=== PATIENT | female | born 1975 | race Caucasian/White ===

== ENCOUNTER 2017-02-02 22:13 | Emergency (ER) | payer SELFPAY ==
[~2017-02-02] VITALS: Ht 165.1 cm; Wt 48.0 kg
[~2017-02-02 22:13] MED LIST: BUPR-197; PERC10TA27; SYNT25TA
[2017-02-02 22:29] VITALS: BP 156/93; PULSE 91; RESP 16; TEMP 98.6; O2SAT 97
[2017-02-03 00:43] VITALS: BP 137/78; PULSE 75; RESP 18; TEMP 98.2; O2SAT 100
--- NOTE | 2017-02-03 01:44 | PD ---
HPI Chief Complaint: Dizziness Time Seen by Provider: 01:40 Travel History International Travel<30 days: No Contact w/Intl Traveler<30days: No Traveled to known affect area: No History of Present Illness HPI 41 year-old female presents to the emergency for for several days of not feeling well. Colleague has had similar symptoms but is well now. Patient has noted multiple areas of skin lesions that developed as well as in the last 24 hours. Patient has had MRSA infection of the past. Last period just finished yesterday and was normal for her. Patient denies . Pain is 6-7/10 in intensity. Patient is unable to identify exacerbating or alleviating factors. Patient has history of rheumatoid arthritis. Patient has had cough congestion myalgias arthralgias no report of sinus pressure drainage sore throat neck pain neck stiffness chest pain abdominal pain flank pain vomiting or diarrhea. PFSH Past Medical History Narrative Medical depression hypothyroidism substance use MRSA infection; nursing notes reviewed Depression: Yes Cardiovascular Problems: No Genitourinary: No Immune Disorder: No Musculoskeletal: No Neurologic: No Reproductive: No Respiratory: No Thyroid Disease: Yes (THYROID RADIATED ) ?: Not LMP: CURRENT Past Surgical History Endocrine Surgery: Yes (HYPOTHYROID) Social History Alcohol Use: Yes (COUPLE OF BEERS DAILY) Tobacco Use: No Substance Use: Yes (SNORTED METH TODAY) Allergies-Medications (Allergen,Severity, Reaction): Coded Allergies: No Known Allergies (Verified Adverse Reaction, Unknown, 02/02/17) Reported Meds & Prescriptions Reported Meds & Active Scripts Active No Active Prescriptions or Reported Medications Review of Systems Except as stated in HPI: all other systems reviewed are Neg Physical Exam Narrative GENERAL: Well-developed well-nourished female in no acute distress no respiratory distress SKIN: Warm and dry. Multiple vesicles and pustules with partial healing primarily left upper arm left index finger left wrist right middle finger right wrist 2 areas in the mons pubis HEAD: Normocephalic. EYES: No scleral icterus. No injection or drainage. NECK: Supple, trachea midline. No JVD or lymphadenopathy. CARDIOVASCULAR: Regular rate and rhythm without murmurs, gallops, or rubs. RESPIRATORY: Breath sounds equal bilaterally. No accessory muscle use. GASTROINTESTINAL: Abdomen soft, non-tender, nondistended. MUSCULOSKELETAL: No cyanosis, or edema. BACK: Nontender without obvious deformity. No CVA tenderness. Data Data Last Documented VS Vital Signs Date Time Temp Pulse Resp B/P (MAP) Pulse Ox O2 Delivery O2 Flow Rate FiO2 02/03/17 05:24 70 18 129/65 (86) 98 Room Air 02/03/17 00:43 98.2 Orders Orders Wound Culture And Gram Stain (02/03/17 01:40) Influenzae A/B Antigen (02/03/17 01:40) Urinalysis - C+S If Indicated (02/03/17 01:40) Ed Urine Pregnancytest Poc (02/03/17 01:40) Chest, Single Ap (02/03/17 ) Ibuprofen (Motrin) (02/03/17 01:45) Clindamycin (Cleocin) (02/03/17 05:30) Labs Laboratory Tests Test 02/03/17 04:20 Urine Color LIGHT-YELLOW Urine Turbidity CLEAR Urine pH 5.5 Urine Specific [place] 1.007 Urine Protein NEG mg/dL Urine Glucose (UA) NEG mg/dL Urine Ketones NEG mg/dL Urine Occult Blood NEG Urine Nitrite NEG Urine Bilirubin NEG Urine Urobilinogen LESS THAN 2.0 MG/DL Urine Leukocyte Esterase MOD Urine RBC 1 /hpf Urine WBC 2 /hpf Urine Squamous Epithelial Cells 1 /hpf Urine Bacteria RARE /hpf Urine Mucus FEW /lpf Microscopic Urinalysis Comment CULT NOT INDICATED MDM Medical Decision Making Medical Screen Exam Complete: Yes Emergency Medical Condition: Yes Medical Record Reviewed: Yes Differential Diagnosis Cellulitis folliculitis MRSA infection UTI pneumonia influenza; no findings for necrotizing fasciitis Narrative Course Specimens collected and sent for resulting chest x-ray ordered ibuprofen administered for pain Diagnosis Primary Impression: Folliculitis barbae traumatica Additional Impression: Cellulitis of finger, left Referrals: Primary Care Physician 2 days Patient Instructions: General Instructions Additional Instructions: Keep wound site clean and dry Complete course of antibiotic as prescribed Take acetaminophen/Tylenol as needed for fever 100.4F or greater Take ibuprofen as tolerated for pain associated with inflammation or fever fever 100.4F or greater per package directions Return to the emergency department for any concerns or change in condition Follow-up with her primary care provider or clinic Med/Other Pt SpecificInfo: Prescription(s) given Scripts Sulfamethoxazole-Trimethoprim (Bactrim DS) 800-160 Mg Tab 1 TAB PO BID for Infection, #20 TAB 0 Refills Prov: Quita Ruiz MD 02/03/17 Clindamycin (Clindamycin) 150 Mg Cap 300 MG PO Q6H for Infection for 7 Days, #56 CAP 0 Refills Prov: Quita Ruiz MD 02/03/17 Disposition: 01 DISCHARGE HOME Condition: Stable Quita Ruiz MD Feb 03, 2017 01:44
[2017-02-03] MEDS ORDERED: IBUPROFEN 400 MG TAB PO ONE (01:45)
--- NOTE | 2017-02-03 02:10 | RADRPT ---
EXAM DATE/TIME: 02/03/2017 01:50 [facility] COMPARISON: No previous studies available for comparison. INDICATIONS : Headache and flu symptoms x 1 week. MEDICAL HISTORY : Hypotyroid, MRSA SURGICAL HISTORY : None. ENCOUNTER: Initial ACUITY: 1 week PAIN SCORE: 6/10 LOCATION: Bilateral chest FINDINGS: Single AP view of the chest. The lungs are clear. Cardiomediastinal silhouette within normal limits. No evidence of pleural effusion or pneumothorax. CONCLUSION: No acute cardiopulmonary disease identified. Jose Albert MD on February 03, 2017 at 2:08 Board Certified Radiologist. This report was verified electronically.
[2017-02-03 04:37] LABS: BACTERIA, URINE RARE /hpf; BLOOD, URINE NEG (NEG); GLUCOSE,URINE NEG (NEG); KETONE, URINE NEG (NEG); MUCUS URINE FEW /lpf (OCC); NITRITE,URINE NEG (NEG); PH, URINE 5.5 (5.0-8.5); SQUAMOUS EPITHELIAL CELL URINE 1 /hpf (0-5); URINE COLOR LIGHT-YELLOW (YELLW/STRAW)
[2017-02-03 04:38] LABS: COMMENT (UR) CULT NOT INDICATED; CULTURE IF INDICATED CULT NOT INDICATED
[2017-02-03 05:24] VITALS: BP 129/65; PULSE 70; RESP 18; O2SAT 98
[2017-02-03] MEDS ORDERED: BACT800T5 PO (05:28)
[2017-02-03] MEDS ORDERED: CLIN150C14 PO (05:28)
[2017-02-03] MEDS ORDERED: CLINDAMYCIN 150 MG CAP PO ONE (05:30)
[2017-02-03] MEDS ORDERED: SULFAMETHOXAZOLE-TRIMETHOPRIM DS 800-160 MG TAB PO ONE (05:30)
== END 2017-02-03 05:58 | disposition home or self-care (01) ==
LOC: NEPC 22:13
DX: L73.8 Other specified follicular disorders (principal); L03.012 Cellulitis of left finger; B95.62 Methicillin resistant Staphylococcus aureus infection as the cause of diseases classified elsewhere; M06.9 Rheumatoid arthritis, unspecified; F32.9 Major depressive disorder, single episode, unspecified; E03.9 Hypothyroidism, unspecified; F15.90 Other stimulant use, unspecified, uncomplicated; Z86.14 Personal history of Methicillin resistant Staphylococcus aureus infection
CPT/HCPCS: 71010; 81001; 84703; 86403; 87070; 87186; 87804; 99284

== ENCOUNTER 2017-03-03 18:17 | Emergency (ER) | payer SELFPAY ==
[~2017-03-03] VITALS: Ht 165.1 cm; Wt 50.0 kg
[~2017-03-03 18:17] MED LIST changes: +BACT800T5 PO; -BUPR-197; +CLIN150C14 PO; -PERC10TA27; -SYNT25TA
[2017-03-03 18:19] VITALS: BP 146/82; PULSE 87; RESP 16; TEMP 97.9; O2SAT 97
[2017-03-03] MEDS ORDERED: SODIUM CHLOR 0.9% 1000 ML INJ 1,000 ML IV ONE (19:33)
--- NOTE | 2017-03-03 19:38 | PD ---
HPI Chief Complaint: Suicide Ideation/Attempt Time Seen by Provider: 17:25 Travel History International Travel<30 days: No Contact w/Intl Traveler<30days: No Traveled to known affect area: No History of Present Illness HPI This patient was examined in the presence of a female nurse at all times. 41- year-old female presents voluntarily requesting psychiatric evaluation. She reports that she has a history of bipolar disorder, ran out of her psychiatric medications 3 months ago and is amenable to follow-up with psychiatry. She reports that she was kicked out of her home 6 weeks ago and has been homeless since then. As a result she has been using drugs more frequently-specifically she occasionally uses alcohol, marijuana, intravenous methamphetamines. She reports that she's not been eating or drinking very much and today she had a syncopal event and hit the right side of her head against the ground. This occurred when she was walking in she felt lightheaded and fell. She endorses depression, feelings of hopelessness, occasional suicidal thoughts. She reports that today she attempted to walk on the traffic to kill herself but she stopped herself at the last minute. She denies homicidal ideation, hallucinations. She denies chest pain, shortness of breath, palpitations, nausea or vomiting, abdominal pain. She has no other complaints at this time. [facility] Past Medical History Depression: Yes Cardiovascular Problems: No Genitourinary: No Immune Disorder: No Musculoskeletal: No Neurologic: No Reproductive: No Respiratory: No Thyroid Disease: Yes (THYROID RADIATED ) ?: Not LMP: 02/09/17 Past Surgical History Endocrine Surgery: Yes (HYPOTHYROID) Social History Alcohol Use: Yes (COUPLE OF BEERS DAILY) Tobacco Use: No Substance Use: Yes (SNORTED METH TODAY) Allergies-Medications (Allergen,Severity, Reaction): Coded Allergies: No Known Allergies (Verified Adverse Reaction, Unknown, 03/03/17) Reported Meds & Prescriptions Reported Meds & Active Scripts Active Reported Latuda (Lurasidone) 40 Mg Tab 40 Mg PO DAILY Synthroid (Levothyroxine Sodium) 50 Mcg Tab 50 Mcg PO DAILY Zoloft (Sertraline HCl) 50 Mg Tab 50 Mg PO DAILY Review of Systems Except as stated in HPI: all other systems reviewed are Neg Physical Exam Narrative Examined in the presence of a female nurse GENERAL: Disheveled appearing female who is in no acute distress. SKIN: Warm and dry. Multiple excoriated skin lesions on the extremities, face and torso likely secondary to skin picking. HEAD: Atraumatic. Normocephalic. EYES: Pupils equal and round. No scleral icterus. No injection or drainage. ENT: No nasal bleeding or discharge. Mucous membranes pink and moist. NECK: Trachea midline. No JVD. CARDIOVASCULAR: Regular rate and rhythm. No murmur appreciated. RESPIRATORY: No accessory muscle use. Clear to auscultation. Breath sounds equal bilaterally. GASTROINTESTINAL: Abdomen soft, non-tender, nondistended. Hepatic and splenic margins not palpable. MUSCULOSKELETAL: No obvious deformities. No clubbing. No cyanosis. No edema. NEUROLOGICAL: Awake and alert. No obvious cranial nerve deficits. Motor grossly within normal limits. Normal speech. PSYCHIATRIC: Anxious, agitated. Data Data Last Documented VS Vital Signs Date Time Temp Pulse Resp B/P (MAP) Pulse Ox O2 Delivery O2 Flow Rate FiO2 03/03/17 20:00 16 99 Room Air 03/03/17 19:57 60 62 03/03/17 18:19 97.9 Orders Orders Electrocardiogram (03/03/17 19:33) Ed Urine Pregnancytest Poc (03/03/17 19:33) Complete Blood Count With Diff (03/03/17 19:33) Comprehensive Metabolic Panel (03/03/17 19:33) Magnesium (Mg) (03/03/17 19:33) Urinalysis - C+S If Indicated (03/03/17 19:33) Ecg Monitoring (03/03/17 19:33) Iv Access Insert/Monitor (03/03/17 19:33) Oximetry (03/03/17 19:33) Sodium Chloride 0.9% Flush (Ns Flush) (03/03/17 19:45) Sodium Chlor 0.9% 1000 Ml Inj (Ns 1000 M (03/03/17 19:33) Orthostatic Vital Signs (03/03/17 19:33) Psych Screen (03/03/17 19:33) Drug Screen, Random Urine (03/03/17 19:33) Alcohol (Ethanol) (03/03/17 19:33) Salicylates (Aspirin) (03/03/17 19:33) Tylenol (Acetaminophen) (03/03/17 19:33) Ct Brain W/O Iv Contrast(Rout) (03/03/17 ) Labs Laboratory Tests Test 03/03/17 19:50 03/03/17 21:20 White Blood Count 5.0 TH/MM3 Red Blood Count 3.41 MIL/MM3 Hemoglobin 11.3 GM/DL Hematocrit 31.8 % Mean Corpuscular Volume 93.3 FL Mean Corpuscular Hemoglobin 33.2 PG Mean Corpuscular Hemoglobin Concent 35.6 % Red Cell Distribution Width 17.3 % Platelet Count 294 TH/MM3 Mean Platelet Volume 7.3 FL Neutrophils (%) (Auto) 37.9 % Lymphocytes (%) (Auto) 49.0 % Monocytes (%) (Auto) 11.0 % Eosinophils (%) (Auto) 1.8 % Basophils (%) (Auto) 0.3 % Neutrophils # (Auto) 1.9 TH/MM3 Lymphocytes # (Auto) 2.5 TH/MM3 Monocytes # (Auto) 0.5 TH/MM3 Eosinophils # (Auto) 0.1 TH/MM3 Basophils # (Auto) 0.0 TH/MM3 CBC Comment DIFF FINAL Differential Comment Blood Urea Nitrogen 9 MG/DL Creatinine 1.01 MG/DL Random Glucose 95 MG/DL Total Protein GM/DL Albumin 3.6 GM/DL Calcium Level 8.5 MG/DL Magnesium Level 2.1 MG/DL Alkaline Phosphatase 69 U/L Aspartate Amino Transf (AST/SGOT) 123 U/L Alanine Aminotransferase (ALT/SGPT) 67 U/L Total Bilirubin 0.1 MG/DL Sodium Level 138 MEQ/L Potassium Level 3.6 MEQ/L Chloride Level 104 MEQ/L Carbon Dioxide Level 23.6 MEQ/L Anion Gap 10 MEQ/L Estimat Glomerular Filtration Rate 60 ML/MIN Salicylates Level LESS THAN 1.7 MG/DL Acetaminophen Level LESS THAN 2.0 MCG/ML Ethyl Alcohol Level 71 MG/DL Urine Color STRAW Urine Turbidity CLEAR Urine pH 6.5 Urine Specific [place] 1.002 Urine Protein NEG mg/dL Urine Glucose (UA) NEG mg/dL Urine Ketones NEG mg/dL Urine Occult Blood NEG Urine Nitrite NEG Urine Bilirubin NEG Urine Urobilinogen LESS THAN 2.0 MG/DL Urine Leukocyte Esterase TRACE Urine RBC LESS THAN 1 /hpf Urine WBC 1 /hpf Urine Squamous Epithelial Cells 1 /hpf Microscopic Urinalysis Comment CULT NOT INDICATED Urine Opiates Screen NEG Urine Barbiturates Screen NEG Urine Amphetamines Screen NEG Urine Benzodiazepines Screen NEG Urine Cocaine Screen NEG Urine Cannabinoids Screen NEG MDM Medical Decision Making Medical Screen Exam Complete: Yes Emergency Medical Condition: Yes Medical Record Reviewed: Yes Differential Diagnosis Substance induced mood disorder, medication noncompliance, bipolar disorder, schizophrenia, major depressive disorder Narrative Course 41-year-old female presents voluntarily requesting psychiatric evaluation of depression, suicidal thoughts. In addition she has a medical complaint of syncope today. She reports that she is recently homeless, has not been eating or drinking much and today be she became dizzy and lightheaded and fell, hitting her head against the ground. The patient will be placed on ECG monitoring pulse oximetry. A 12-lead EKG will be obtained. Orthostatic vital signs are obtained. Plan is for basic lab work, CT of the brain. She will be given IV fluid bolus. Mental health screening discussed with the patient. Psychiatric screen ordered. Lab work notable for alcohol level of 71, AST 123 and ALT 67. She is medically cleared for psychiatric disposition. Procedures EKG Prior to Arrival: Yes Diagnosis Primary Impression: Suicidal ideation Additional Impression: Syncope Qualified Codes: R55 - Syncope and collapse Star Michael Mar 03, 2017 19:38
[2017-03-03] MEDS ORDERED: ZOLO50TA PO (19:44)
[2017-03-03] MEDS ORDERED: LURA40 PO (19:44)
[2017-03-03] MEDS ORDERED: LEVO.05 PO (19:44)
[2017-03-03] MEDS ORDERED: SODIUM CHLORIDE 0.9% FLUSH 10 ML FLUSH IVF PRN (19:45)
[2017-03-03 19:57] VITALS: BP_SYST 110; BP_SYST 111; BP_DIAS 62; BP_DIAS 68
[2017-03-03 20:00] VITALS: RESP 16; O2SAT 99
[2017-03-03 20:10] LABS: AUTOMATED NEUTROPHIL # 1.9 TH/MM3 (1.8-7.7); BASOPHIL % 0.3 % (0.0-2.0); EOSINOPHIL # 0.1 TH/MM3 (0-0.4); EOSINOPHIL % 1.8 % (0.0-4.0); HEMATOCRIT 31.8 % (35.0-46.0); HEMO FLAGS DIFF FINAL; LYMPHOCYTE # 2.5 TH/MM3 (1.0-4.8); MEAN CELL VOLUME 93.3 FL (80.0-100.0); MEAN CORPUSCULAR HEMOGLOBIN 33.2 PG (27.0-34.0); MEAN CORPUSCULAR HGB CONC 35.6 % (32.0-36.0); NEUT % 37.9 % (16.0-70.0); PLATELET COUNT 294 TH/MM3 (150-450); RED BLOOD COUNT 3.41 MIL/MM3 (4.00-5.30); RED CELL DISTRIBUTION WIDTH 17.3 % (11.6-17.2)
--- NOTE | 2017-03-03 20:47 | RADRPT ---
EXAM DATE/TIME: 03/03/2017 20:20 [facility] COMPARISON: No previous studies available for comparison. INDICATIONS : Headache and altered mental status with drug abuse. RADIATION DOSE: 47.41 CTDIvol (mGy) MEDICAL HISTORY : drug abuse SURGICAL HISTORY : None. ENCOUNTER: Initial ACUITY: 1 day PAIN SCALE: 5/10 LOCATION: cranial TECHNIQUE: Multiple contiguous axial images were obtained of the head. Using automated exposure control and adj ustment of the mA and/or kV according to patient size, radiation dose was kept as low as reasonably a chievable to obtain optimal diagnostic quality images. DICOM format image data is available electro nically for review and comparison. FINDINGS: CEREBRUM: The ventricles are normal for age. No evidence of midline shift, mass lesion, hemorrhage or acute in farction. No extra-axial fluid collections are seen. POSTERIOR FOSSA: The cerebellum and brainstem are intact. The 4th ventricle is midline. The cerebellopontine angle i s unremarkable. EXTRACRANIAL: The visualized portion of the orbits is intact. SKULL: The calvaria is intact. No evidence of skull fracture. CONCLUSION: Negative noncontrast head CT. Gomez Amaro MD on March 03, 2017 at 20:45 Board Certified Radiologist. This report was verified electronically.
[2017-03-03 21:00] LABS: ANION GAP 10 MEQ/L (5-15); AST (GOT) 123 U/L (15-37); BICARBONATE 23.6 MEQ/L (21.0-32.0); BLOOD UREA NITROGEN 9 MG/DL (7-18); CHLORIDE 104 MEQ/L (98-107); GLOMERULAR FILTRATION RATE 60 ML/MIN (>89); MAGNESIUM 2.1 MG/DL (1.5-2.5); POTASSIUM 3.6 MEQ/L (3.5-5.1); SODIUM (NA) 138 MEQ/L (136-145)
[2017-03-03 21:03] LABS: ALCOHOL 71 MG/DL (0-5)
[2017-03-03 21:05] LABS: ACETAMINOPHEN LESS THAN 2.0 MCG/ML (10.0-30.0); ALKALINE PHOSPHATASE 69 U/L (45-117); ALT (GPT) 67 U/L (10-53); TOTAL BILIRUBIN ADULT 0.1 MG/DL (0.2-1.0)
[2017-03-03 21:59] LABS: BLOOD, URINE NEG (NEG); GLUCOSE,URINE NEG (NEG); KETONE, URINE NEG (NEG); NITRITE,URINE NEG (NEG); PH, URINE 6.5 (5.0-8.5); SQUAMOUS EPITHELIAL CELL URINE 1 /hpf (0-5)
[2017-03-03 22:00] LABS: URINE COLOR STRAW (YELLW/STRAW)
[2017-03-03 22:01] LABS: COMMENT (UR) CULT NOT INDICATED; CULTURE IF INDICATED CULT NOT INDICATED
[2017-03-04 00:06] VITALS: BP 108/60; PULSE 70; RESP 18; TEMP 98.6; O2SAT 98
[2017-03-04 02:00] VITALS: BP 102/59; PULSE 58; RESP 16; TEMP 99; O2SAT 98
[2017-03-04 06:00] VITALS: BP 105/63; PULSE 64; RESP 18; O2SAT 98
[2017-03-04 10:10] VITALS: BP 117/65; PULSE 68; RESP 18; O2SAT 100
[2017-03-04 18:38] VITALS: BP 107/80; PULSE 61; RESP 18; O2SAT 100
--- NOTE | 2017-03-04 22:33 | EKG ---
Date Performed: 03/03/2017 Time Performed: 20:06:00 PTAGE: 41 years EKG: SINUS BRADYCARDIA LOW QRS VOLTAGE IN PRECORDIAL LEADS BORDERLINE ECG NO PREVIOUS TRACING DOCTOR: Douglas Hudson Interpretating Date/Time 03/04/2017 22:32:10
[2017-03-05 06:20] VITALS: BP 131/64; PULSE 66; RESP 18
[2017-03-05 10:12] VITALS: BP 117/64; PULSE 72; RESP 18; TEMP 99.1; O2SAT 100
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
--- NOTE | 2017-03-05 10:51 | PD ---
Physical Exam Time Seen by Provider: 10:[address] Hutton has evaluated the patient, lifted the Sanz act and cleared the patient for discharge. Data Data Last Documented VS Vital Signs Date Time Temp Pulse Resp B/P (MAP) Pulse Ox O2 Delivery O2 Flow Rate FiO2 03/05/17 10:12 99.1 72 18 117/64 (81) 100 Room Air Orders Orders Electrocardiogram (03/03/17 19:33) Ed Urine Pregnancytest Poc (03/03/17 19:33) Complete Blood Count With Diff (03/03/17 19:33) Comprehensive Metabolic Panel (03/03/17 19:33) Magnesium (Mg) (03/03/17 19:33) Urinalysis - C+S If Indicated (03/03/17 19:33) Ecg Monitoring (03/03/17 19:33) Iv Access Insert/Monitor (03/03/17 19:33) Oximetry (03/03/17 19:33) Sodium Chloride 0.9% Flush (Ns Flush) (03/03/17 19:45) Sodium Chlor 0.9% 1000 Ml Inj (Ns 1000 M (03/03/17 19:33) Orthostatic Vital Signs (03/03/17 19:33) Psych Screen (03/03/17 19:33) Drug Screen, Random Urine (03/03/17 19:33) Alcohol (Ethanol) (03/03/17 19:33) Salicylates (Aspirin) (03/03/17 19:33) Tylenol (Acetaminophen) (03/03/17 19:33) Ct Brain W/O Iv Contrast(Rout) (03/03/17 ) Diet Regular Basic (03/04/17 Breakfast) Diet Regular Basic (03/04/17 Lunch) Diet Regular Basic (03/04/17 Dinner) Diet Regular Basic (03/05/17 Breakfast) Labs Laboratory Tests Test 03/03/17 19:50 03/03/17 21:20 White Blood Count 5.0 TH/MM3 Red Blood Count 3.41 MIL/MM3 Hemoglobin 11.3 GM/DL Hematocrit 31.8 % Mean Corpuscular Volume 93.3 FL Mean Corpuscular Hemoglobin 33.2 PG Mean Corpuscular Hemoglobin Concent 35.6 % Red Cell Distribution Width 17.3 % Platelet Count 294 TH/MM3 Mean Platelet Volume 7.3 FL Neutrophils (%) (Auto) 37.9 % Lymphocytes (%) (Auto) 49.0 % Monocytes (%) (Auto) 11.0 % Eosinophils (%) (Auto) 1.8 % Basophils (%) (Auto) 0.3 % Neutrophils # (Auto) 1.9 TH/MM3 Lymphocytes # (Auto) 2.5 TH/MM3 Monocytes # (Auto) 0.5 TH/MM3 Eosinophils # (Auto) 0.1 TH/MM3 Basophils # (Auto) 0.0 TH/MM3 CBC Comment DIFF FINAL Differential Comment Blood Urea Nitrogen 9 MG/DL Creatinine 1.01 MG/DL Random Glucose 95 MG/DL Total Protein GM/DL Albumin 3.6 GM/DL Calcium Level 8.5 MG/DL Magnesium Level 2.1 MG/DL Alkaline Phosphatase 69 U/L Aspartate Amino Transf (AST/SGOT) 123 U/L Alanine Aminotransferase (ALT/SGPT) 67 U/L Total Bilirubin 0.1 MG/DL Sodium Level 138 MEQ/L Potassium Level 3.6 MEQ/L Chloride Level 104 MEQ/L Carbon Dioxide Level 23.6 MEQ/L Anion Gap 10 MEQ/L Estimat Glomerular Filtration Rate 60 ML/MIN Salicylates Level LESS THAN 1.7 MG/DL Acetaminophen Level LESS THAN 2.0 MCG/ML Ethyl Alcohol Level 71 MG/DL Urine Color STRAW Urine Turbidity CLEAR Urine pH 6.5 Urine Specific [place] 1.002 Urine Protein NEG mg/dL Urine Glucose (UA) NEG mg/dL Urine Ketones NEG mg/dL Urine Occult Blood NEG Urine Nitrite NEG Urine Bilirubin NEG Urine Urobilinogen LESS THAN 2.0 MG/DL Urine Leukocyte Esterase TRACE Urine RBC LESS THAN 1 /hpf Urine WBC 1 /hpf Urine Squamous Epithelial Cells 1 /hpf Microscopic Urinalysis Comment CULT NOT INDICATED Urine Opiates Screen NEG Urine Barbiturates Screen NEG Urine Amphetamines Screen NEG Urine Benzodiazepines Screen NEG Urine Cocaine Screen NEG Urine Cannabinoids Screen NEG MDM Supervised Visit with [facility]: No Narrative Course Dr. Hutton has evaluated the patient, lifted the Sanz act and cleared the patient for discharge. Patient contracts safety. Denies suicidal or homicidal ideations. Patient will be provided community resource packet to [facility] for follow-up. Has friends and family for support. Patient was medically cleared by alternate provider prior to psych screening. Patient has been evaluated by psychiatry and and is now cleared for discharge. Diagnosis Primary Impression: Alcohol abuse Referrals: [facility] (Out patient) [facility] Primary Care Physician Psychiatrist Patient Instructions: Abuse of Alcohol (ED), Alcohol Dependence (ED), Alcohol Intoxication (ED), General Instructions Additional Instruction: Contract safety to your self and others Drinking alcohol Follow-up with psychiatry Follow-up with primary care provider Follow-up with [facility] Return to the emergency department immediately with worsening of symptoms Med/Other Pt SpecificInfo: No Change to Meds, No Meds Exist/No RX given Disposition: 01 DISCHARGE HOME Condition: Stable Tammy Wu CLAIMS ACCOUNT MANAGER Mar 05, 2017 10:51
== END 2017-03-05 11:37 | disposition home or self-care (01) ==
LOC: NEPD 18:17 → NEPJ 03-05 11:37
DX: R45.851 Suicidal ideations (principal); R55 Syncope and collapse; F10.10 Alcohol abuse, uncomplicated; R94.31 Abnormal electrocardiogram [ECG] [EKG]; E07.9 Disorder of thyroid, unspecified; Z86.59 Personal history of other mental and behavioral disorders; Z59.0 Homelessness
CPT/HCPCS: 70450; 80053; 80307; 81001; 83735; 84703; 85025; 93005; 96360; 96361; 99285; J7030